=== PATIENT | female | born 1975 | race African-American/Black ===

== ENCOUNTER 2018-09-25 20:23 | Emergency (ER) | payer SELFPAY ==
[~2018-09-25] VITALS: Ht 165.1 cm; Wt 54.4 kg
--- NOTE | 2018-09-25 20:36 | NUR ---
PT REKHA FROM STREET FOR ETOH. PT AAOX4, APPEARS INTOXICATED. DENIES SI/HI AT THIS TIME. VITAL SIGNS STABLE. RESPIRATIONS EVEN AND UNLABORED. NO ACUTE DISTRESS NOTED AT THIS TIME. WILL CONTINUE TO MONITOR
--- NOTE | 2018-09-25 23:48 | NUR ---
PT RESTING COMFORTABLY IN BED. EASILY AROUSABLE. VITAL SIGNS STABLE. WILL CONTINUE TO MONITOR
--- NOTE | 2018-09-26 01:40 | NUR ---
PT RESTING COMFORTABLY IN BED. EASILY AROUSABLE. VITAL SIGNS STABLE. WILL CONTINUE TO MONITOR.
--- NOTE | 2018-09-26 04:45 | NUR ---
PT RESTING COMFORTABLY IN BED. EASILY AROUSABLE. VITAL SIGNS STABLE. WILL CONTINUE TO MONITOR
[2018-09-26 05:45] VITALS: BP 118/76
== END 2018-09-26 05:46 | disposition home or self-care (01) ==
LOC: ER 20:26
DX: F10.129 Alcohol abuse with intoxication, unspecified (principal); E11.9 Type 2 diabetes mellitus without complications; F31.9 Bipolar disorder, unspecified; Z60.2 Problems related to living alone; Y90.9 Presence of alcohol in blood, level not specified